=== PATIENT | male | born 1975 | race Caucasian/White ===

== ENCOUNTER 2016-10-03 22:53 | Emergency (ER) | payer SELFPAY ==
[~2016-10-03 22:53] MED LIST: NO MEDICATIONS
[2016-10-03 23:24] LABS: BASOPHIL% 0.6 % (0-2.5); DIFF IND NO; EOSINOPHIL% 1.4 % (0.0-7.0); HEMATOCRIT 44.7 % (38.0-50.0); HEMOGLOBIN 15.5 gm/dL (13.0-16.0); LYMPHOCYTE# 0.7 X10e3 (1.0-3.5); LYMPHOCYTE% 25.4 % (17.0-45.0); MEAN CELL VOLUME 87.9 FL (83-96); MEAN CORPUSCULAR HEMOGLOBIN 30.5 PG (28-34); MEAN CORPUSCULAR HGB CONC 34.7 g/dL (30-36); MEAN PLATELET VOLUME 9.2 FL (6.5-11.5); MONOCYTE# 0.4 X10e3 (0-1.0); MONOCYTE% 13.8 % (3.0-12.0); NEUTROPHIL# 1.6 X10e3 (1.5-7.1); NEUTROPHIL% 58.8 % (40-75); PLATELET COUNT 71 X10e3 (140-420); RED BLOOD COUNT 5.09 X10e (3.90-5.60); RED CELL DISTRIBUTION WIDTH 12.7 % (11.0-15.5); WHITE BLOOD COUNT 2.8 X10e3 (4.0-10.5)
[2016-10-03 23:34] LABS: ALBUMIN SERUM 3.9 g/dL (3.5-5.0); ALKALINE PHOSPHATASE 161 U/L (32-92); ALT (SGPT) 126 U/L (10-40); AST (SGOT) 113 U/L (10-42); BILIRUBIN, DIRECT 0.3 mg/dL (0.0-0.2); BILIRUBIN,INDIRECT 1.1 mg/dL (0.0-0.9); BILIRUBIN,TOTAL 1.4 mg/dL (0.2-2.0); BLOOD UREA NITROGEN 11 mg/dL (9-23); CALCIUM SERUM 8.8 mg/dL (8.4-10.2); CARBON DIOXIDE 31 mmol/L (22-31); CHLORIDE 100 mmol/L (100-111); CREATININE SERUM 1.1 mg/dL (0.6-1.4); GLOM FILT RATE Estimated ABOVE60 mL/min (>60); GLUCOSE FASTING 98 mg/dL (70-110); POTASSIUM 3.8 mmol/L (3.5-5.1); PROTEIN TOTAL SERUM 6.8 g/dL (6.0-8.3); SODIUM 137 mmol/L (135-145)
== END 2016-10-04 00:12 | disposition home or self-care (01) ==
LOC: SED 22:53
PROVIDERS: Physician Assistant
DX: B34.9 Viral infection, unspecified (principal); F17.210 Nicotine dependence, cigarettes, uncomplicated
CPT/HCPCS: 36415; 80048; 80076; 85025; 86308; 87651; 99283

== ENCOUNTER 2017-03-14 12:02 | Emergency (ER) | payer BC ==
--- NOTE | ~2017-03-14 | CR72 ---
[facility]. [facility] A Service of [facility] RADIOLOGY TEXT RESULTS PATIENT: AMY DUNCAN LOCATION: SED : 75 UNIT #: [id number] AGE: [address]: Rigoberto Jackson MD SEX: M ORDER DR: [id number] [place] [id number] E MR#: [id number] Acc #: [id number] NAME: AMY DUNCAN : 1975 SEX: M STUDY DATE/TIME: 03/14/2017 12:49 UNIT: SED ROOM: STUDY DESCRIPTION: CR Chest Single View Portable Attending Physician: Rigoberto Jackson M.D. Ordering Physician: Rigoberto Jackson M.D. Primary Care Physician: No Primary Care Physician MEDICAL IMAGING REPORT This report is preliminary unless electronic signature is present. EXAM Portable chest x-ray, 03/14/2017. HISTORY Chest pain. Chest pain radiating to left arm cough and congestion for 1 week. Chest pain began today. TECHNIQUE AP radiograph of the chest is presented. COMPARISON No prior studies for comparison. FINDINGS The bony structures are unremarkable. The heart and mediastinum are normal in size and contour. The lungs are well inflated bilaterally. No pleural effusion or pneumothorax. No suspicious nodule. Dictated by... Aman Martínez M.D. THIS IS AN ELECTRONICALLY VERIFIED REPORT Aman Martínez M.D. at 03/16/2017 10:01 PM SHON/jose TD: 03/14/2017 19:24 JOB #: [id number] MEDICAL IMAGING REPORT Page 1 of 1
--- NOTE | ~2017-03-14 | EKG ---
PATIENT: AMY DUNCAN UNIT #: [id number] Ventricular Rate: 89 BPM Atrial Rate: 89 BPM P-R Interval: 130 ms QRS Duration: 88 ms Q-T Interval: 348 ms QTC Calculation(Bezet): 423 ms P [place]: 35 degrees Calculated R [place]: 65 degrees Calculated T [place]: 33 degrees Diagnosis Line: Normal sinus rhythm with sinus arrhythmia Diagnosis Line: Normal ECG Diagnosis Line: No previous ECGs available Diagnosis Line: Confirmed by TIA SCHWARZ MD ([id number]) on 03/15/2017 Diagnosis Line: 4:37:58 PM INTERPRETING MD: KARISHMA ELAINE
[2017-03-14] MEDS ORDERED: PRILOSEC (12:15)
[2017-03-14 12:31] LABS: POC - CKMB <1.0 ng/mL (0.0-7.9); POC - MYOGLOBIN 45.8 ng/mL (0.0-169.0); POC - TROPONIN <0.05 ng/mL (<=0.05)
[2017-03-14 12:36] LABS: BASOPHIL% 0.7 % (0-2.5); DIFF IND NO; EOSINOPHIL# 0.2 X10e3 (0-0.7); EOSINOPHIL% 2.8 % (0.0-7.0); HEMATOCRIT 48.8 % (38.0-50.0); LYMPHOCYTE# 1.3 X10e3 (1.0-3.5); LYMPHOCYTE% 20.6 % (17.0-45.0); MEAN CELL VOLUME 88.5 FL (83-96); MEAN CORPUSCULAR HEMOGLOBIN 30.8 PG (28-34); MEAN CORPUSCULAR HGB CONC 34.8 g/dL (30-36); MEAN PLATELET VOLUME 9.6 FL (6.5-11.5); MONOCYTE# 0.5 X10e3 (0-1.0); MONOCYTE% 8.6 % (3.0-12.0); NEUTROPHIL# 4.2 X10e3 (1.5-7.1); NEUTROPHIL% 67.3 % (40-75); PLATELET COUNT 129 X10e3 (140-420); RED BLOOD COUNT 5.52 X10e (3.90-5.60); RED CELL DISTRIBUTION WIDTH 13.2 % (11.0-15.5); WHITE BLOOD COUNT 6.2 X10e3 (4.0-10.5)
[2017-03-14 12:51] LABS: ALBUMIN SERUM 5.1 g/dL (3.5-5.0); BILIRUBIN, DIRECT 0.1 mg/dL (0.0-0.2); BILIRUBIN,INDIRECT 0.9 mg/dL (0.0-0.9); CALCIUM SERUM 8.9 mg/dL (8.4-10.2); GLOM FILT RATE Estimated 93.1 mL/min (>60); POTASSIUM 3.4 mmol/L (3.5-5.1); PROTEIN TOTAL SERUM 7.9 g/dL (6.0-8.3)
[2017-03-14 13:58] LABS: POC - CKMB <1.0 ng/mL (0.0-7.9); POC - MYOGLOBIN 50.4 ng/mL (0.0-169.0); POC - TROPONIN <0.05 ng/mL (<=0.05)
== END 2017-03-14 15:05 | disposition home or self-care (01) ==
LOC: SED 12:02
PROVIDERS: Emergency Medicine
DX: R07.89 Other chest pain (principal); K21.9 Gastro-esophageal reflux disease without esophagitis; F17.200 Nicotine dependence, unspecified, uncomplicated
CPT/HCPCS: 36415; 71010; 80048; 80076; 82553; 83874; 84484; 85025; 93005; 96374; 99285; J1885